=== PATIENT | female | born 1990 | race Hispanic/Latino ===

== ENCOUNTER 2022-03-08 18:32 | Emergency (ER) | payer OTHER ==
[2022-03-08] MEDS ORDERED: TAM75CAP PO (20:57)
[2022-03-08 21:23] VITALS: BP 99/56
== END 2022-03-08 21:26 | disposition home or self-care (01) | DRG 195 ==
LOC: ED 18:32
DX: J10.1 Influenza due to other identified influenza virus with other respiratory manifestations (principal)

== ENCOUNTER 2024-02-24 11:14 | Emergency (ER) | payer SELFPAY ==
[2024-02-24] VITALS (18 sets, daily range): BP systolic 86–119; BP diastolic 49–72
[~2024-02-24] VITALS: Ht 157.5 cm; Wt 51.2 kg
[~2024-02-24 11:14] MED LIST: BACTRIM DS1 TAB PO; TAM75CAP PO
[2024-02-24] MEDS ORDERED: ONDANSETRON HCl 4 MG/2 ML SDV IV STA (11:47)
[2024-02-24] MEDS ORDERED: MORPHINE SULFATE 4 MG/ML VIAL IV STA (11:47)
[2024-02-24] MEDS ORDERED: SODIUM CHLORIDE 0.9% 1,000 ML IV STA ×2 (11:47→14:47)
[2024-02-24] MEDS ORDERED: Pantoprazole Sodium 40 MG VIAL (Protonix) IV STA (11:47)
[2024-02-24] MEDS ORDERED: LIDOCAINE VISCOUS 2% 15 ML UDC PO ONE (11:50)
[2024-02-24] MEDS ORDERED: ALUM & MAG HYDROX-SIMETHICONE 30 ML PO ONE (11:50)
[2024-02-24 12:03] LABS: BASO% 0.3 % (0-3); EOS% 0.8 % (0-8); HEMATOCRIT 38.7 % (37.0-47.0); HEMOGLOBIN 12.8 g/dl (12.0-16.0); IMMATURE GRANULOCYTES 0.1 % (0.0-5.0); LYMPH% 4.4 % (15-41); MEAN CELL VOLUME 96.5 fL CALC (80.0-100.0); MEAN CORPUSCULAR HGB 31.9 pG CALC (26.0-32.0); MEAN CORPUSCULAR HGB CONC 33.1 g/dL CAL (32.0-36.0); MONO% 4.3 % (2-13); NEUT# 18.23 thou/uL (2.00-7.15); NEUT% 90.1 % (42-76); RED BLOOD COUNT 4.01 mill/uL (4.20-5.60); RED CELL DISTRI WIDTH 12.1 % (11.5-15.5)
[2024-02-24 12:18] LABS: ALBUMIN 4.4 g/dL (3.2-5.0); BILIRUBIN, TOTAL 0.7 mg/dL (0.02-1.3); CREATININE 0.6 mg/dL (0.5-1.0); POTASSIUM 3.7 mmol/l (3.5-5.1); TOTAL PROTEIN 7.1 g/dL (6.3-8.2)
[2024-02-24 14:35] LABS: URINE BILIRUBIN - DIPSTICK Negative (NEGATIVE); URINE BLOOD DIPSTICK Negative (NEGATIVE); URINE GLUCOSE - DIPSTICK Negative (NEGATIVE); URINE KETONE 40 mg/dL (NEGATIVE); URINE LEUK ESTERASE Negative (NEGATIVE); URINE NITRITE - DIPSTICK Negative (Negative); URINE PH 5.5 (4.5-8.0); URINE PROTEIN - DIPSTICK Negative (NEG-TRACE); URINE UROBILINOGEN - DIPSTICK 0.2 E.U./dL (0.2)
[2024-02-24 14:38] LABS: URINE COLOR Yellow
[2024-02-24 18:57] LABS: BASO% 0.2 % (0-3); HEMATOCRIT 32.5 % (37.0-47.0); IMMATURE GRANULOCYTES 0.1 % (0.0-5.0); MEAN CELL VOLUME 95.9 fL CALC (80.0-100.0); MEAN CORPUSCULAR HGB 32.4 pG CALC (26.0-32.0); MEAN CORPUSCULAR HGB CONC 33.8 g/dL CAL (32.0-36.0); MONO% 4.2 % (2-13); NEUT# 13.57 thou/uL (2.00-7.15); NEUT% 91.5 % (42-76); RED BLOOD COUNT 3.39 mill/uL (4.20-5.60); RED CELL DISTRI WIDTH 12.1 % (11.5-15.5)
[2024-02-24] MEDS ORDERED: METRONIDAZOLE500 MG PO (19:02)
[2024-02-24] MEDS ORDERED: ZOFRAN4 MG/TAB PO (19:02)
== END 2024-02-24 19:23 | disposition home or self-care (01) | DRG 392 ==
LOC: ED 11:14
PROVIDERS: Emergency Medicine
DX: K52.9 Noninfective gastroenteritis and colitis, unspecified (principal)
CPT/HCPCS: J2405; J2470; Q9967

== ENCOUNTER 2024-04-08 11:20 | Emergency (ER) | payer SELFPAY ==
[~2024-04-08] VITALS: Ht 157.5 cm; Wt 58.9 kg
[~2024-04-08 11:20] MED LIST changes: +METRONIDAZOLE500 MG PO; +ZOFRAN4 MG/TAB PO
[2024-04-08 11:27] VITALS: BP 122/75
[2024-04-08 11:30] VITALS: BP 106/69
[2024-04-08 11:45] VITALS: BP 114/70
[2024-04-08 11:54] LABS: BASO% 0.4 % (0-3); EOS% 0.5 % (0-8); HEMATOCRIT 35.2 % (37.0-47.0); HEMOGLOBIN 11.8 g/dl (12.0-16.0); IMMATURE GRANULOCYTES 0.1 % (0.0-5.0); LYMPH% 16.3 % (15-41); MEAN CELL VOLUME 94.9 fL CALC (80.0-100.0); MEAN CORPUSCULAR HGB 31.8 pG CALC (26.0-32.0); MEAN CORPUSCULAR HGB CONC 33.5 g/dL CAL (32.0-36.0); MONO% 5.4 % (2-13); NEUT# 8.84 thou/uL (2.00-7.15); NEUT% 77.3 % (42-76); RED BLOOD COUNT 3.71 mill/uL (4.20-5.60); RED CELL DISTRI WIDTH 11.8 % (11.5-15.5)
[2024-04-08 12:00] VITALS: BP 112/71
[2024-04-08] MEDS ORDERED: KETOROLAC TROMETHAMINE 15 MG/ML SDV IV ONE (12:00)
[2024-04-08 12:15] LABS: BILIRUBIN, TOTAL 0.6 mg/dL (0.02-1.3); CREATININE 0.6 mg/dL (0.5-1.0); POTASSIUM 3.8 mmol/l (3.5-5.1); TOTAL PROTEIN 7.9 g/dL (6.3-8.2)
[2024-04-08] MEDS ORDERED: EC-NAPROXEN500 MG PO (13:35)
[2024-04-08 13:37] VITALS: BP 112/71
== END 2024-04-08 13:45 | disposition home or self-care (01) | DRG 552 ==
LOC: ED 11:20
PROVIDERS: Family Medicine
DX: M54.2 Cervicalgia (principal)
CPT/HCPCS: J1885; Q9967